=== PATIENT | male | born 1975 | race Caucasian/White ===

== ENCOUNTER 2019-05-24 15:53 | Emergency (ER) | payer SELFPAY ==
[2019-05-24 17:36] VITALS: BP 116/80
[2019-05-24] MEDS ORDERED: Lidocaine 1% MPF ** 5 ML VIAL INJ ONE (18:09)
[2019-05-24] MEDS ORDERED: Tetan/Diph/Pertus SYR(Tdap)* 0.5 ML SYR(BOOSTRIX) use SYR contains LATEX IM ONE (18:09)
--- NOTE | 2019-05-24 18:22 | UC ---
Laceration HPI - HPI Summary HPI Summary: 43-year-old male who sustained a laceration to his left index finger this morning at 11 AM when he was cutting something with a very sharp Knife. Last tetanus unknown. - History Of Current Complaint Chief Complaint: UCLaceration Stated Complaint: L FINGER LACERATION Time Seen by Provider: 05/24/19 17:50 Hx Obtained From: Patient Laceration Location: Finger Mechanism Of Injury: Sharp Trauma Onset/Duration: Sudden Onset Severity: Mild Pain Intensity: 1 Aggravating Factors: Movement - Allergies/Home Medications Allergies/Adverse Reactions: Allergies Allergy/AdvReac Type Severity Reaction Status Date / Time No Known Allergies Allergy Verified 05/24/19 17:36 Home Medications: Home Medications NK [No Home Medications Reported] 05/24/19 [History Confirmed 05/24/19] PMH/Surg Hx/FS Hx/Imm Hx Previously Healthy: Yes - Surgical History Surgical History: Yes Surgery Procedure, Year, and Place: finger on right hand - Family History Known Family History: Positive: Non-Contributory - Social History Occupation: Employed Full-time Alcohol Use: Daily Substance Use Type: None Smoking Status (MU): Never Smoked Tobacco - Immunization History Most Recent Tetanus Shot: unsure Review of Systems All Other Systems Reviewed And Are Negative: Yes Skin: Positive: Other - Laceration left index finger midportion. Is Patient Immunocompromised?: No Physical Exam Triage Information Reviewed: Yes Appearance: Well-Appearing, No Pain Distress, Well-Nourished Vital Signs: Initial Vital Signs Temp 98.5 F 05/24/19 17:29 Pulse 74 05/24/19 17:29 Resp 16 05/24/19 17:29 BP 116/80 05/24/19 17:29 Pulse Ox 97 05/24/19 17:29 Vital Signs Reviewed: Yes Musculoskeletal: Positive: Strength Intact, ROM Intact, Other: - Good peripheral pulses, neuro sensation and capillary refill. Good finger strength with flexion and extension against resistance. Neurological: Positive: Alert, Muscle Tone Normal Psychological Exam: Normal Skin: Positive: Other - Pt has an approximately 1.0 cm laceration to his left index finger midportion across the knuckle. Laceration Repair - Laceration Repair 1 Description: Linear Laceration Size After Repair: Length (cm) - 1.0 cm Modified For Repair: No Type Injection: Local Anesthesia Used: 1.0% Lido Cleansing Completed Via Routine Prep: Yes Irrigation With Pressure Irrigation Device: Yes Closure Material: Sutures - Sutures placed numbered 3 Closure Method: Single Layer Suture Of: SQ Suture Type: Prolene - 4-0 Prolene Laceration Course/Dx - Course/Dx Course Of Treatment: The patient tolerated the procedure well. Dry sterile dressing was applied. He is to follow-up at the [facility] or here if any signs of infection and/or for suture removal. - Diagnosis Provider Diagnosis: Laceration of finger Discharge ED - Sign-Out/Discharge Documenting (check all that apply): Patient Departure All imaging exams completed and their final reports reviewed: No Studies - Discharge Plan Condition: Good Disposition: HOME Patient Education Materials: Care For Your Stitches (DC) Referrals: Navneet Wan MD [Primary Care Provider] - [facility] [Outside] [facility] [Outside] Additional Instructions: You were given a Tdap tetanus immunization which is good for 8-10 years. Change dressing in 24 hours. Watch for signs of infection such as hot, red, tender, pus drainage and follow-up at [facility] if you develop the symptoms or you can recheck here. Sutures out in approximately 10 days. - Billing Disposition and Condition Condition: GOOD Disposition: Home
== END 2019-05-24 18:59 | disposition home or self-care (01) ==
LOC: UCEAST 15:53
DX: S61.211A Laceration without foreign body of left index finger without damage to nail, initial encounter (principal); Z23 Encounter for immunization; W26.0XXA Contact with knife, initial encounter; Y92.9 Unspecified place or not applicable
CPT/HCPCS: 12001; 90471; 90715; 99201; G0463